=== PATIENT | male | born 1990 | race Caucasian/White ===

== ENCOUNTER 2023-12-20 07:56 | Emergency (ER) | payer SELFPAY ==
[2023-12-20 08:01] VITALS: BP 139/91
[2023-12-20 08:23] LABS: % Basophils 0.7 % (0-2); % Eosinophils 2.2 % (0-6); % Immature Granulocytes 0.3 % (0-0.5); % Lymphocytes 26.1 % (20.5-51.1); % Neutrophils 62.7 % (42.2-75.2); Absolute Eosinophils 0.1 10^3/uL (0-0.7); Absolute Lymphocytes 1.5 10^3/uL (1.2-3.4); Absolute Monocytes 0.5 10^3/uL (0.1-0.6); Absolute Neutrophils 3.6 10^3/uL (1.4-6.5); Hematocrit 43.4 % (39.0-52.0); Hemoglobin 15.3 g/dL (13.0-18.0); Mean Corp Hgb Conc. 35.3 g/dL (33.0-37.0); Mean Platelet Volume 10.2 fL (7.4-10.4); Nucleated Red Blood Cells % 0 % (-); Platelet Count 229 10^3/uL (130-400); Red Blood Cell Count 4.93 10^6/uL (4.70-6.10); Red Cell Dist. Width 12.1 % (11.5-14.5); White Blood Cell Count 5.8 10^3/uL (4.8-10.8)
[2023-12-20 08:36] LABS: ALT (SGPT) 28 U/L (0-50); AST (SGOT) 21 U/L (17-59); Albumin 4.6 g/dl (3.5-5.0); Alkaline Phosphatase 47 U/L (38-126); Blood Urea Nitrogen 28 mg/dl (9-20); Calcium 9.9 mg/dl (8.4-10.2); Carbon Dioxide 31 mmol/L (22-30); Chloride 97 mmol/L (98-107); Glucose 116 mg/dl (70-99); Potassium 4.3 mmol/L (3.5-5.1); Sodium 138 mmol/L (135-145); Total Bilirubin 0.8 mg/dl (0.2-1.3); Total Protein 6.8 g/dl (6.3-8.2); eGFR > 60.00
[2023-12-20 08:47] LABS: Troponin I < 0.012 ng/ml
[2023-12-20 10:00] VITALS: BP 131/88
[2023-12-20 10:02] VITALS: BP 152/97; BMI 19.6
--- NOTE | 2023-12-20 10:41 | ED.GENMED ---
History of Present Illness
General
Chief Complaint: Chest Pain
Time Seen by Provider: 12/20/23 10:04
Course
Orders/Labs/Results
Orders:
Orders
12/20/23 08:00
ECG [Electrocardiogram (*1)] Urgent
Reason for Study: Chest Pain
EKG- Treatment ONCE
12/20/23 08:14
Complete Blood Count/With Diff Urgent
Comprehensive Metabolic Panel Urgent
Troponin I Urgent
12/20/23 10:37
CR Chest - 2 Views Urgent
Comment:
Reason For Exam: chest pain
Abnormal Lab Results
12/20/23
08:14
Chloride 97 L mmol/L
(98-107)
Carbon Dioxide 31 H mmol/L
(22-30)
BUN 28 H mg/dl
(9-20)
Glucose 116 H mg/dl
(70-99)
12/20/23 08:14
12/20/23 08:14
Vital Signs
Initial and Last Documented VS:
Initial Vital Signs
Temp Pulse Resp BP Pulse Ox
98.1 F 78 18 139/91 100
12/20/23 08:01 12/20/23 08:01 12/20/23 08:01 12/20/23 08:01 12/20/23 08:01
Last Documented Vital Signs
Temp Pulse Resp BP Pulse Ox
98.1 F 79 16 152/97 98
12/20/23 08:01 12/20/23 10:02 12/20/23 10:02 12/20/23 10:02 12/20/23 10:02
ED Attending Note
-
Portions of this chart may have been created with voice recognition software.� Occasional wrong word or��sound alike� substitutions may have occurred due to the inherent limitations of voice recognition software.
Discharge Plan
Interventions
Interventions:
*Risk Screen - Suicide Last Done: 12/20/23 10:08
*General Assessment Last Done: 12/20/23 10:02
*Neglect/Abuse Screening Last Done: 12/20/23 10:02
ED- Cardiac Assessment Last Done: 12/20/23 10:08
Discharge Date and Time
Print Language: SWEDISH
[2023-12-20 11:00] VITALS: BP 138/81
--- NOTE | 2023-12-20 11:42 | ED.PDOC.TRB ---
ED Provider Triage
-
Patient seen by provider in Triage?: Seen in Triage
--- NOTE | 2023-12-20 11:43 | ED.GENMED ---
History of Present Illness
<Zaheer Zimmerman PA-C - Last Filed: 12/20/23 13:04>
General
Chief Complaint: Chest Pain
Time Seen by Provider: 12/20/23 10:04
History of Present Illness
History of Present Illness:
33-year-old male presents to the emergency department for evaluation of a myriad of complaints. He states that he has 'episodes' where he feels heart palpitations with heart rates exceeding 150 bpm associated with dizziness, near syncope, and
shortness of breath. He also reports occasional episodes of either coughing or belching 'Frank[place]'. He states to me that the symptoms began after receiving the Tdap vaccine approximately 3 weeks ago. 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
and states 'we are in an unknown pandemic, there is a fungal infection, young man and no one knows about it'. He is insistent to me that he wants to be 'tested for fungus and get MRIs'. When questioned about what he is referring to in terms of
what body parts or what type of testing, he states 'everything'. He states to me 'it is my legal right to request these tests'.
Review of Systems
<Zaheer Zimmerman PA-C - Last Filed: 12/20/23 13:04>
Review of Systems
Allergies reviewed?: Yes
All Other Systems: ROS reviewed and negative except as documented in HPI and ROS
Phy Exam
<Zaheer Zimmerman PA-C - Last Filed: 12/20/23 13:04>
Physical Exam
Physical Exam:
GEN: Well appearing, NAD, WDWN
HEENT: Oral mucosa moist, no scleral icterus
Cardiac: Regular rate and rhythm, no murmurs
Lung: No respiratory distress, no tachypnea, lungs clear to auscultation bilaterally
MSK: No gross deformity or injuries
Skin: Good color, no pallor or jaundice, no rashes
Neuro: AO x3, moves all extremities freely
Psych: Calm, cooperative
Scores
<Zaheer Zimmerman PA-C - Last Filed: 12/20/23 13:04>
Heart Score for Chest Pain Patients
STEMI patient?: Not applicable
Course
<Zaheer Zimmerman PA-C - Last Filed: 12/20/23 13:04>
Orders/Labs/Results
Orders:
Orders
12/20/23 08:00
ECG [Electrocardiogram (*1)] Urgent
Reason for Study: Chest Pain
EKG- Treatment ONCE
12/20/23 08:14
Complete Blood Count/With Diff Urgent
Comprehensive Metabolic Panel Urgent
Troponin I Urgent
12/20/23 10:37
CR Chest - 2 Views Urgent
Comment:
Reason For Exam: chest pain
12/20/23 12:11
Fungus Blood Culture Urgent
HEATHER Source: Blood/Venous
Specimen Description:
Date Specimen was Collected: 12/20/23
Time Specimen was Collected: 12:00
Abnormal Lab Results
12/20/23
08:14
Chloride 97 L mmol/L
(98-107)
Carbon Dioxide 31 H mmol/L
(22-30)
BUN 28 H mg/dl
(9-20)
Glucose 116 H mg/dl
(70-99)
12/20/23 08:14
12/20/23 08:14
Vital Signs
Initial and Last Documented VS:
Initial Vital Signs
Temp Pulse Resp BP Pulse Ox
36.7 C 78 18 139/91 100
12/20/23 08:01 12/20/23 08:01 12/20/23 08:01 12/20/23 08:01 12/20/23 08:01
Last Documented Vital Signs
Temp Pulse Resp BP Pulse Ox
36.7 C 72 20 138/81 99
12/20/23 08:01 12/20/23 12:00 12/20/23 12:00 12/20/23 11:00 12/20/23 12:00
<Vincent Fernandez MD - Last Filed: 12/20/23 14:54>
Orders/Labs/Results
Orders:
Orders
12/20/23 08:00
ECG [Electrocardiogram (*1)] Urgent
Reason for Study: Chest Pain
EKG- Treatment ONCE
12/20/23 08:14
Complete Blood Count/With Diff Urgent
Comprehensive Metabolic Panel Urgent
Troponin I Urgent
12/20/23 10:37
CR Chest - 2 Views Urgent
Comment:
Reason For Exam: chest pain
12/20/23 12:11
Fungus Blood Culture Urgent
HEATHER Source: Blood/Venous
Specimen Description:
Date Specimen was Collected: 12/20/23
Time Specimen was Collected: 12:00
Abnormal Lab Results
12/20/23
08:14
Chloride 97 L mmol/L
(98-107)
Carbon Dioxide 31 H mmol/L
(22-30)
BUN 28 H mg/dl
(9-20)
Glucose 116 H mg/dl
(70-99)
12/20/23 08:14
12/20/23 08:14
Vital Signs
Initial and Last Documented VS:
Initial Vital Signs
Temp Pulse Resp BP Pulse Ox
36.7 C 78 18 139/91 100
12/20/23 08:01 12/20/23 08:01 12/20/23 08:01 12/20/23 08:01 12/20/23 08:01
Last Documented Vital Signs
Temp Pulse Resp BP Pulse Ox
36.7 C 72 20 138/81 99
12/20/23 08:01 12/20/23 12:00 12/20/23 12:00 12/20/23 11:00 12/20/23 12:00
<Zaheer Zimmerman PA-C - Last Filed: 12/20/23 13:04>
MDM/Problems Addressed
MDM/Problems Addressed:
Patient displays tendencies of delusion and he is quite perseverant on the idea that he is infected with fungus and he is quite convinced that he will if this is not identified. Chest x-ray was obtained due to his reports of chest pain and
shortness of breath and this did identify a right upper lobe nodular opacities suggesting infectious or inflammatory bronchiolitis. I did offer to treat the patient with antibiotics for this however he declines, he states he knows it is not
bacterial rather it is fungal and he wants 'fungal testing'. 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 He is quite insistent on getting 'fungus test' and I blocked his request by sending a fungal blood culture however have a
low suspicion this will reveal any pathology. He declines antibiotics although I did prescribe this to his pharmacy. Recommend he follow-up with pulmonary and obtain repeat chest x-ray in 6 to 12 weeks due to the abnormal chest x-ray today. He
did request to speak with my attending physician as he does not agree with my diagnostics. Likely a large component of this is psychosomatic
<Zaheer Zimmerman PA-C - Last Filed: 12/20/23 13:04>
*Critical Care Note
Total Time (30-74mins, 75-104mins- exclusive of procedures): Not Applicable
ED Attending Note
<Zaheer Zimmerman PA-C - Last Filed: 12/20/23 13:04>
-
Portions of this chart may have been created with voice recognition software.� Occasional wrong word or��sound alike� substitutions may have occurred due to the inherent limitations of voice recognition software.
<Vincent Fernandez MD - Last Filed: 12/20/23 14:54>
ED Attending Note
Patient seen and examined by attending physician: Yes
ED Attending Note:
I have seen and evaluated the patient with a [id number] encounter. I have spoken to the advance practicer provider and involved in the medical history, the physical exam, medical decision making.
Evaluation and management service: agree unless noted differently below.
Results interpretation: agree unless noted differently below.
Focused HPI: 33-year-old male with past medical history of ADHD who presents to the ER for evaluation of chest discomfort which has been intermittent for the past week and a half associated with palpitations.
Physical exam: Vitals normal. No cardiac rubs gallops or murmurs. Lungs clear to auscultation bilaterally. Good pulses in all extremities with no edema
Medical Decision Makin-year-old male presents for evaluation of chest discomfort and palpitations intermittent for about a week and a half. He thinks it could be related to a recent tetanus shot, is also concerned that he could have an occult
fungal infection. He says that the reason he is concerned about a fungal infection is 'because it is the only thing that makes sense.' He cannot provide any further clarity on his concerns. His vitals and exam are reassuring here. His EKG shows
a sinus rhythm with no signs of acute ischemic change. His troponin is undetectable, CBC and CMP unremarkable. He did have right upper lobe suspected infectious/inflammatory bronchiolitis no other acute pathology noted. Will trial a short course
of antibiotics. Spoke about return precautions all questions answered.
Discharge Plan
Departure
Patient Disposition: Home (Routine Discharge)
Date of Disposition: 12/20/23
Time of Disposition: 11:52
Patient with high blood pressure during this ER visit?: No
Discharge Problem:
Bronchiolitis
Instructions: Bronchitis, Adult ED
Prescriptions:
New
doxycycline monohydrate 100 mg capsule
100 mg PO BID Qty: 14 0RF
Referrals:
Mic Khan MD [Active] -
Activity Restrictions/Additional Instructions:
Your chest x-ray shows a focal abnormality in the right upper lobe that is likely infectious or inflammatory. Typically these are bacterial infections. We will treat you with a 7-day course of antibiotics and I recommend you follow-up with the
furnace process supervisor for further lung assessment. Please also discuss this finding with your primary care physician as you will typically require repeat chest x-ray or CT scan of the chest within the next 6 to 12 weeks to reevaluate
Interventions
Interventions:
*Risk Screen - Suicide Last Done: 12/20/23 10:08
*General Assessment Last Done: 12/20/23 10:02
*Neglect/Abuse Screening Last Done: 12/20/23 10:02
*Nursing Disposition Last Done: 12/20/23 12:47
ED- Cardiac Assessment Last Done: 12/20/23 10:08
Discharge Date and Time
Discharge Date/Time: 12/20/23 12:50
Print Language: FINNISH
--- NOTE | 2023-12-26 10:30 | OID.L.PAT ---
Pulmonary Nodule Pat Letter
- -
12/26/23
FEMI VASQUEZ
[address]
[place], [place] [address]
Dear FEMI,
A pulmonary nodule was seen on an imaging study done by [facility]. This was reviewed by the [facility] Pulmonary Nodule Advisory Board and the following recommendation was made:
Recommendation: Follow up Chest Xray in 6 to 8 weeks
If you have any questions, please do not hesitate to contact your primary care physician. If you are in need of a Physician, you can go to [email or web address] and click on 'Find a Provider'. Type 'Family Medicine' in the search.
Oncology Nurse Navigator
[facility]
[phone]
Certified Mail Return Receipt
== END 2023-12-20 12:50 | disposition home or self-care (01) ==
LOC: EMR 07:56
PROVIDERS: Physician Assistant; EMERGENCY PHYSICIAN Emergency Medicine
DX: J21.9 Acute bronchiolitis, unspecified (principal)
CPT/HCPCS: 99285; 71046; 80053; 84484; 85025; 87103; 93005